=== PATIENT | male | born 1960 | race Caucasian/White ===

== ENCOUNTER 2022-10-07 19:11 | Emergency (ER) | payer MEDICARE, MEDICAID ==
[~2022-10-07] VITALS: Ht 182.9 cm; Wt 113.6 kg
[~2022-10-07 19:11] MED LIST: AMLO10TA13 PO; ARIP10TA15 PO; ATOR40TA72 PO; CIPR2.5D21 RIGHTEYE; DIPH-423 PO; HYDR-3972 PO; LORA-269 PO; NICO-907 BC; TRAZ-251 PO
[2022-10-07 22:50] LABS: BASOPHILS % (AUTO) 0.7 % (0-1); EOSINOPHILS # (AUTO) 0.1 X10'3 (0-0.9); EOSINOPHILS % (AUTO) 2.1 % (0-6); HEMATOCRIT 38.8 % (42.0-52.0); HEMOGLOBIN 13.7 g/dl (14.0-17.9); LYMPHOCYTES # (AUTO) 3.2 X10'3 (1.1-4.8); MEAN CORPUSCULAR HGB CONC 35.4 g/dL (33.0-36.5); MEAN CORPUSCULAR VOLUME 93.2 FL (78-98); MEAN PLATELET VOLUME 7.5 FL (7.4-10.4); MONOCYTES # (AUTO) 0.4 X10'3 (0-0.9); MONOCYTES % (AUTO) 6.8 % (2-12); NEUTROPHILS % (AUTO) 35.4 % (42-75); PLATELET COUNT 171 X10'3 (140-440); RED BLOOD COUNT 4.16 X10'6 (4.70-6.10); RED CELL DISTRIBUTION WIDTH 13.7 % (11.5-14.5); WHITE BLOOD COUNT 5.7 X10'3 (4.5-11.0)
[2022-10-07 22:58] LABS: ALANINE AMINOTRANSFERASE 28 U/L (12-78); ALBUMIN 3.7 G/DL (3.4-5.0); ALBUMIN/GLOBULIN RATIO 1.2 (1.1-1.5); ALKALINE PHOSPHATASE 75 IU/L (46-116); ANION GAP 8 (8-16); ASPARTATE AMINO TRANSFERASE 21 U/L (10-37); BILIRUBIN,TOTAL 0.5 MG/DL (0.1-1.0); BLOOD UREA NITROGEN 15 MG/DL (7-18); BUN/CREATININE RATIO 16.1 (5.4-32.0); CALCIUM 8.5 MG/DL (8.5-10.1); CHLORIDE 105 MMOL/L (99-107); CREATININE 0.93 MG/DL (0.60-1.10); ETHANOL 0.042 GM/DL (0.0-0.010); GLUCOSE 110 MG/DL (70-104); POTASSIUM 4.1 MMOL/L (3.5-5.1); SODIUM 139 MMOL/L (135-145); TOTAL CARBON DIOXIDE 26.3 MMOL/L (24-32); TOTAL PROTEIN 6.7 G/DL (6.4-8.2); eGFR 82 ML/MIN
[2022-10-07 23:00] LABS: ACETAMINOPHEN < 2.0 UG/ML (10-30)
--- NOTE | 2022-10-07 23:10 | NUR ---
PT PREFERRED COMMUNITY ORGANIZATION AIDE, FAMILY FRIEND, ATUL GARDNER [phone]
[2022-10-07 23:32] LABS: TOTAL CELLS COUNTED 100
[2022-10-07 23:33] LABS: PLATELET ESTIMATE NORMAL
[2022-10-08 04:31] LABS: URINE AMPHETAMINE SCREEN NEGATIVE (Neg); URINE BARBITUATE SCREEN NEGATIVE (Neg); URINE BENZODIAZEPINES SCREEN NEGATIVE (Neg); URINE CANNABINOID SCREEN NEGATIVE (Neg); URINE COCAINE SCREEN NEGATIVE (Neg); URINE METHADONE SCREEN NEGATIVE (Neg); URINE OPIATE SCREEN NEGATIVE (Neg); URINE PHENCYCLIDINE SCREEN NEGATIVE (Neg)
--- NOTE | 2022-10-08 06:47 | NUR ---
Report given to Gabriela CHAN at ED overflow
--- NOTE | 2022-10-08 06:50 | NUR ---
Received pt from main ER. He is calm and cooperative. He denies SI or plan.
--- NOTE | 2022-10-08 09:00 | NUR ---
Per Navjot, pt is okay to go if he can find a ride home from a friend. Pt remains calm and cooperative. Currently resting on the bed. RR even and unlabored.
--- NOTE | 2022-10-08 11:00 | NUR ---
A friend of Martins called, James. Per Omar it is okay for this nurse to speak to this person, James. Per James, pt upset last night over his living situation, "he does not like his shower or how close the stove is to the refrigerator." Omar called James and told him he took Ativan and drank alcohol. Per Omar he took 3mg of Ativan and drank three drinks of "Rum and Coke." Per James in March 2022 pt took [place]'s received Narcan from flight nurses and was air lifted to [place] from [place]. He said another time the Customer Support Specialist put him on a 5150.
[2022-10-08] MEDS ORDERED: PALI156D IM (12:48)
--- NOTE | 2022-10-08 12:48 | NUR ---
Pt reports he is off of all of his medications. He states, "I am due for an invega injection tomorrow. He is unsure when he recieved the initial dose.
--- NOTE | 2022-10-08 14:03 | NUR ---
Pt has been sleeping. Pt will be here and discharge tomorrow. ordered Isha Mo 156mg injection.
--- NOTE | 2022-10-08 16:16 | NUR ---
Pt continues to sleep. RR even and unlabored.
--- NOTE | 2022-10-08 18:26 | NUR ---
Pt ate his dinner and now appears to be resting. He is waiting for his injection so he can go home tommorrow if he can get through the snow. Pt lives in [place].
--- NOTE | 2022-10-08 18:50 | NUR ---
Pt is sitting quietly in bed. Pt states he is here because he is suicidal, doesnt want to live anymore, because he needs a better housing situation. Pt states his kitchen and shower are too small and its hard to get around his house and its making him depressed. He states he is on [employer] and his house is too small. Pt states he thinks invega will help, and he usually goes to "[employer] meetings" to socialize which helps with depression but hasnt helped lately.
--- NOTE | 2022-10-08 19:37 | NUR ---
pt in bed resting comfortably rr even and unlabored.
--- NOTE | 2022-10-08 21:40 | NUR ---
pt is laying in bed on his left side asleep, snoring quietly rr 14
--- NOTE | 2022-10-09 00:47 | NUR ---
Pt is asleep, laying on his left side rr 16
--- NOTE | 2022-10-09 03:47 | NUR ---
Pt is awake and up to use the restroom, returned to bed. pt states he has no needs at this time.
--- NOTE | 2022-10-09 05:48 | NUR ---
Pt is resting quietly in bed, vitals are being taken.
[2022-10-09 06:09] VITALS: BP 134/91
--- NOTE | 2022-10-09 07:12 | NUR ---
Patient is resting in bed with eyes closed, in no distress at this time.
[2022-10-09] MEDS ORDERED: paliperidone palmitate 156 mg/ml inj.**IM only IM ONE (08:00)
--- NOTE | 2022-10-09 09:13 | NUR ---
Called patient friend James twice to see if he can pick patient up. No answer and left message on phone to return call. Waiting on return call.
--- NOTE | 2022-10-09 10:49 | NUR ---
Uche called back and stated that he is at work at this time. He will try to find another friend to help pick him up. He also said that Patient is a trial member and maybe they can help with transportation. [facility] [phone]. I called transportation and left message on machine to return call. Uche said if we can n Addendum: 10/09/22 at 1051 by MARGOTHON Addendum: Uche called back and stated that he is at work at this time. He will try to find another friend to help pick him up. He also said that Patient is a trial member and maybe they can help with transportation. [facility] [phone]. I called transportation and left message on machine to return call. Uche said if we can not find a ride for him that he can pick him up after work later today around 2pm
--- NOTE | 2022-10-09 12:14 | NUR ---
Carmela from [facility] called back and stated that they can give patient a ride home around 2:00pm. Patient is aware and I called morales patient friend. Morales will have patient house keys and wallet for him when patient arrives home.
--- NOTE | 2022-10-09 13:00 | NUR ---
Patient resting in bed, just finshed ateing lunch and waiting on ride.
--- NOTE | 2022-10-09 14:02 | NUR ---
[facility] is here to picker operator patient to take him home.
== END 2022-10-09 14:09 | disposition still patient (30) ==
LOC: ER 19:13
DX: R45.851 Suicidal ideations (principal); Z20.822 Contact with and (suspected) exposure to COVID-19; E78.00 Pure hypercholesterolemia, unspecified; I10 Essential (primary) hypertension; F31.9 Bipolar disorder, unspecified; F20.9 Schizophrenia, unspecified; Z98.890 Other specified postprocedural states; Z90.89 Acquired absence of other organs; Z79.899 Other long term (current) drug therapy
CPT/HCPCS: 36415; 80053; 80305; 80320; 80329; 85007; 85025; 87811; 96372; 99285